=== PATIENT | female | born 1950 | race Caucasian/White ===

== ENCOUNTER 2016-08-21 08:46 | Day surgery (SDC) | payer MEDICARE ==
[~2016-08-21 08:46] MED LIST: ASPIR 8181 MG PO; ASPIRIN EC81 MG PO; CPAP; DIOVAN320 M1 PO; DIOVAN320 MG PO; DOFETILIDE500 MCG PO; EFFEXOR XR150 M1 PO; EFFEXOR XR150 MG PO; EFFEXOR XR75 MG PO; FISH OIL1 CAP PO; GABAPENTIN; GLUCOPHAGE500 M3 PO; GLUCOPHAGE500 MG PO; GRALISE1 EACH; IBUPROFEN200 M1 PO; ICAPS TABLET1 TAB.S; KLOR-CON M20 MEQ/TAB PO; KLOR-CON M2020 MEQ PO; LASIX20 M1 PO; LASIX20 MG PO; LIPITOR20 MG PO; METFORMIN HCL500 M3 PO; METFORMIN HCL500 MG PO; NEURONTIN300 M1 PO; TIKOSYN0.5 MG PO; TOPROL PO; TOPROL XL100 MG; TOPROL XL200 M1 PO; VITAMIN D35000 UNI2 PO; VITAMIN D35000 UNIT PO; [UNRECOGNIZED DRUG - OTHER] PO
[2016-08-21] MEDS ORDERED: LIPITOR20 M1 PO (08:53)
[2016-08-21] MEDS ORDERED: VITAMIN D2000 UNI1 PO (11:11)
[2016-08-21] MEDS ORDERED: [UNRECOGNIZED DRUG - CODE] PO (11:11)
[2016-08-21] MEDS ORDERED: CINNAMON500 M1 PO (11:12)
[2016-08-21] MEDS ORDERED: MULTI-VITAMIN1 EAC3 PO (11:12)
[2016-08-21 11:37] LABS: BASO % 0.3 % (0-2); EOS % 1.3 % (0-7); EOSINOPHIL ABSOLUTE COUNT 0.2 tho/cmm (0.0-0.7); HCT-HEMATOCRIT 38.6 % (34.0-49.0); HGB-HEMOGLOBIN 12.4 gm/dl (12.0-15.5); IMMATURE GRANULOCYTES ABSOLUTE 0.02 tho/cmm (0-0.03); IMMATURE GRANULOCYTES PERCENT 0.2 % (0-0.3); LYMPH % 21.6 % (20-45); LYMPH ABSOLUTE COUNT 2.5 tho/cmm (0.8-4.5); MCH (MEAN CORPUSCULAR HGB) 29.8 pg (28.0-32.0); MCHC MEAN CORPUSCULAR HGB CONC 32.1 % (32.0-36.0); MCV (MEAN CELL VOLUME) 92.8 fl (82.0-96.0); MEAN PLATELET VOLUME 9.9 cmc (9.4-12.4); MONO % 5.4 % (0-12); MONOCYTE ABSOLUTE COUNT 0.6 tho/cmm (0.0-1.2); NEUTROPHIL ABSOLUTE COUNT 8.1 tho/cmm (1.6-8.0); NEUTROPHIL-AUTOMATED 8.1 tho/cmm (1.6-8.0); NEUTROPHILS % 71.2 % (40-80); PLATELET COUNT 294 tho/cmm (150-450); RED BLOOD COUNT 4.16 mil/cmm (4.00-5.20); WHITE BLOOD COUNT 11.4 tho/cmm (4.0-10.0)
[2016-08-21 11:51] LABS: ANION GAP 13 mmol/L (0-20); BLOOD UREA NITROGEN 18 mg/dl (6-24); CARBON DIOXIDE-VENOUS 25 mmol/L (22-32); CHLORIDE 109 mmol/l (96-110); CREATININE 0.74 mg/dl (0.50-1.10); GLUCOSE 200 mg/dL (70-110); POTASSIUM 4.6 mmol/L (3.7-5.1); SODIUM 142 mmol/L (135-145); eGFR VALUE FOR BLACK >90 mL/Min
[2016-08-21] MEDS ORDERED: TOPROL XL200 M1 PO (14:05)
[2016-08-22 07:46] LABS: BASO % 0.2 % (0-2); EOS % 0.2 % (0-7); HGB-HEMOGLOBIN 10.5 gm/dl (12.0-15.5); IMMATURE GRANULOCYTES ABSOLUTE 0.03 tho/cmm (0-0.03); IMMATURE GRANULOCYTES PERCENT 0.3 % (0-0.3); LYMPH % 31.6 % (20-45); LYMPH ABSOLUTE COUNT 3.5 tho/cmm (0.8-4.5); MCH (MEAN CORPUSCULAR HGB) 29.3 pg (28.0-32.0); MCHC MEAN CORPUSCULAR HGB CONC 31.8 % (32.0-36.0); MCV (MEAN CELL VOLUME) 92.2 fl (82.0-96.0); MEAN PLATELET VOLUME 9.4 cmc (9.4-12.4); MONO % 11.4 % (0-12); MONOCYTE ABSOLUTE COUNT 1.3 tho/cmm (0.0-1.2); NEUTROPHIL ABSOLUTE COUNT 6.3 tho/cmm (1.6-8.0); NEUTROPHIL-AUTOMATED 6.3 tho/cmm (1.6-8.0); NEUTROPHILS % 56.3 % (40-80); PLATELET COUNT 271 tho/cmm (150-450); RED BLOOD COUNT 3.58 mil/cmm (4.00-5.20); RED CELL DISTRIBUTION WIDTH 14.1 % (12.4-16.4); WHITE BLOOD COUNT 11.1 tho/cmm (4.0-10.0)
[2016-08-22 08:01] LABS: ANION GAP 13 mmol/L (0-20); BLOOD UREA NITROGEN 16 mg/dl (6-24); CALCIUM 8.3 mg/dl (8.5-10.5); CARBON DIOXIDE-VENOUS 23 mmol/L (22-32); CHLORIDE 107 mmol/l (96-110); CREATININE 0.79 mg/dl (0.50-1.10); GLUCOSE 189 mg/dL (70-110); POTASSIUM 4.3 mmol/L (3.7-5.1); SODIUM 139 mmol/L (135-145); eGFR VALUE FOR BLACK >90 mL/Min
[2016-08-22] MEDS ORDERED: NORCO 5-325 TA1 EACH PO (10:41)
[2016-08-22] MEDS ORDERED: PERCOCET 5-3251 EACH PO (10:42)
== END 2016-08-22 17:20 ==
LOC: EDMED 08:46 → EMR2 15:48 → PACU 18:10 → 5EB 19:05
PROVIDERS: Family Medicine
PROC: 0PSG04Z Reposition Left Humeral Shaft with Internal Fixation Device, Open Approach (ICD-10-PCS; principal; 2016-08-21)
DX: S42.492A Other displaced fracture of lower end of left humerus, initial encounter for closed fracture (principal); E66.01 Morbid (severe) obesity due to excess calories; I48.91 Unspecified atrial fibrillation; I10 Essential (primary) hypertension; E78.5 Hyperlipidemia, unspecified; E11.9 Type 2 diabetes mellitus without complications; E55.9 Vitamin D deficiency, unspecified; F32.9 Major depressive disorder, single episode, unspecified; G47.33 Obstructive sleep apnea (adult) (pediatric); E04.9 Nontoxic goiter, unspecified; M85.80 Other specified disorders of bone density and structure, unspecified site; Z79.82 Long term (current) use of aspirin; Z79.84 Long term (current) use of oral hypoglycemic drugs; Z79.899 Other long term (current) drug therapy; Z88.1 Allergy status to other antibiotic agents; Z88.8 Allergy status to other drugs, medicaments and biological substances; Z87.442 Personal history of urinary calculi; Z90.89 Acquired absence of other organs; Z98.890 Other specified postprocedural states; Z99.89 Dependence on other enabling machines and devices; W06.XXXA Fall from bed, initial encounter
CPT/HCPCS: C1713; G8978-GP-CJ; G8979-GP-CI; G8980-GP-CJ; G8987-GO-CK; G8988-GO-CK; G8989-GO-CK; J1170; J7030